=== PATIENT | female | born 1950 | race Caucasian/White ===

== ENCOUNTER 2017-12-04 11:04 | Inpatient (IN) | payer OTHER ==
[~2017-12-04] VITALS: Ht 160 cm; Wt 105.3 kg
[~2017-12-04 11:04] MED LIST: ALBU18HF INH; ALPR-475 PO; ALPR1TAB2 PO; CLON1TAB23 PO; DEXL60CA2 PO; DICL50TA2 PO; DULO60CA7 PO; ENOX100S5 SQ; FLUO10CA7 PO; FLUO20CA8 PO; FLUV50TA2 PO; FLUVOXAMINE; FOLI-17 PO; GABA-826 PO; GABA300C10 PO; HYDR-3240 PO; LEVO250T23 PO; LEVO250T8 PO; MAGN400T7 PO; MULT-750 PO; SIMV20TA3 PO; SIMV5TAB5 PO; SYMBICORT; THIA100T6 PO; TOPI15CA PO; TOPI50TA8 PO; TRAZ100T15 PO; WARF1TAB PO; WARF5TAB PO; ZOLP-413 PO; ZOLP10TA PO
[2017-12-04 12:42] LABS: MEAN CORPUSCULAR HEMOGLOBIN 32.4 pg (27.0-34.8); MEAN CORPUSCULAR HGB CONC 33.9 g/dL (32.4-35.8); MEAN CORPUSCULAR VOLUME 95.4 fL (80-100); MEAN PLATELET VOLUME 8.2 fL (7.4-10.4); PLATELET COUNT 279 x10^3/uL (130-400); RED BLOOD COUNT 4.23 x10^6/uL (3.82-5.3); RED CELL DISTRIBUTION WIDTH 13.8 % (9.6-15.2)
[2017-12-04 12:52] LABS: ALBUMIN 3.4 g/dL (3.4-5.0); ANION GAP 9 mmol/L (5-15); CALCIUM 8.5 mg/dL (8.5-10.1); CHLORIDE 107 mmol/L (98-107)
[2017-12-04 12:53] LABS: SALICYLATE LEVEL < 1.7 mg/dL (2.8-20.0)
[2017-12-04 12:54] LABS: ALANINE AMINOTRANSFERASE 17 U/L (12-78); ALKALINE PHOSPHATASE 58 U/L (45-117); BILIRUBIN,TOTAL 0.4 mg/dL (0.2-1.0); CREATININE 0.99 mg/dL (0.55-1.02); TOTAL PROTEIN 7.2 g/dL (6.4-8.2)
[2017-12-04 12:55] LABS: ACETAMINOPHEN < 2 mcg/mL (10-30)
[2017-12-04 13:10] LABS: MD YES
[2017-12-04 13:12] LABS: <PLATELET ESTIMATE> ADEQUATE; <PLT MORPHOLOGY> NORMAL PLT MORPH; <RBC MORPHOLOGY> NORMAL; BAND#(MANUAL) 1.56 x10^3/uL; BANDS%(MANUAL) 7 % (0-7); EOS#(MANUAL) 0.22 x10^3/uL (0.0-0.4); EOS% (MANUAL) 1 % (1-7); LYMPH#(MANUAL) 4.68 x10^3/uL (1-3.4); LYMPHS% (MANUAL) 21 % (22-44); MONOS#(MANUAL) 2.01 x10^3/uL (0.3-2.7); MONOS% (MANUAL) 9 % (2-9); SEG#(MANUAL) 13.83 x10^3/uL (1.8-6.8); SEGS% (MANUAL) 62 % (42-75)
[2017-12-04 13:33] LABS: CULTURE INDICATED? YES; MICROSCOPIC INDICATED
[2017-12-04 13:42] LABS: AMPHETAMINE SCREEN, URINE Negative (Negative); BARBITURATE SCREEN, URINE Negative (Negative); BENZODIAZEPINE SCREEN, URINE Positive (Negative); CANNABINOID SCREEN, URINE Negative (Negative); COCAINE SCREEN, URINE Negative (Negative); METHADONE SCREEN, URINE Negative (Negative); OPIATE SCREEN, URINE Negative (Negative)
[2017-12-04] MEDS ORDERED: CLON2TAB2 PO (14:24)
[2017-12-04] MEDS ORDERED: LORA1TAB PO (14:24)
[2017-12-04] MEDS ORDERED: PIPERACILLIN/TAZO/PMX 3.375GM 50 ML IV ONE (14:30)
[2017-12-04] MEDS ORDERED: CEFTRIAXONE PMX 1GM/50ML 50 ML ONE (14:32)
[2017-12-04] MEDS ORDERED: CEFTRIAXONE PMX 1GM/50ML 50 ML IV ONE (15:00)
[2017-12-04] MEDS ORDERED: hydrALAzine 20 MG/ML, 1ML IVPush PRN (16:00)
[2017-12-04] MEDS ORDERED: LABETALOL 5MG/ML, 20ML IVPush PRN (16:00)
[2017-12-04] MEDS: CEFTRIAXONE 2 GM in DEXTROSE 5% 50 ML IV SCH (17:00)
[2017-12-04] MEDS: LACTATED RINGERS 1,000 ML IV SCH (18:20)
[2017-12-04] MEDS: ENOXAPARIN 40 MG/0.4 ML SQ SCH (18:22)
[2017-12-04 19:12] VITALS: BP 113/74
[2017-12-04] MEDS ORDERED: LORazepam 1MG TABLET PO SCH (21:00)
[2017-12-05 01:34] VITALS: BP 119/80
[2017-12-05] MEDS: LACTATED RINGERS 1,000 ML IV SCH ×3 (02:10→19:27)
[2017-12-05 05:18] LABS: BASOPHILS # (AUTO) 0.09 x10^3/uL (0-0.1); BASOPHILS % (AUTO) 1 % (0-1); EOSINOPHILS % (AUTO) 2 % (1-7); LYMPHOCYTES % (AUTO) 26 % (22-44); MD NO; MEAN CORPUSCULAR HEMOGLOBIN 32.4 pg (27.0-34.8); MEAN CORPUSCULAR HGB CONC 33.9 g/dL (32.4-35.8); MEAN CORPUSCULAR VOLUME 95.4 fL (80-100); MEAN PLATELET VOLUME 8.1 fL (7.4-10.4); MONOCYTES # (AUTO) 1.11 x10^3/uL (0.2-0.8); MONOCYTES % (AUTO) 8 % (2-9); NEUTROPHILS # (AUTO) 8.76 x10^3/uL (1.8-6.8); NEUTROPHILS % (AUTO) 63 % (42-75); PLATELET COUNT 266 x10^3/uL (130-400); RED BLOOD COUNT 3.78 x10^6/uL (3.82-5.3); RED CELL DISTRIBUTION WIDTH 14.1 % (9.6-15.2)
[2017-12-05 05:30] LABS: ANION GAP 6 mmol/L (5-15); CHLORIDE 110 mmol/L (98-107)
[2017-12-05 05:31] LABS: CREATININE 0.79 mg/dL (0.55-1.02)
[2017-12-05 07:27] VITALS: BP 119/80
[2017-12-05] MEDS ORDERED: FLUOXETINE HCL 20 MG CAPSULE PO SCH (09:00)
[2017-12-05 12:55] VITALS: BP 122/83
[2017-12-05 13:25] VITALS: BP 122/83
[2017-12-05] MEDS: CEFTRIAXONE 2 GM in DEXTROSE 5% 50 ML IV SCH (17:42)
[2017-12-05] MEDS: ENOXAPARIN 40 MG/0.4 ML SQ SCH (17:45)
[2017-12-05] MEDS: ACETAMINOPHEN 325 MG TABLET PO PRN (17:46)
[2017-12-05 19:18] VITALS: BP 137/86
[2017-12-06 02:06] VITALS: BP 109/72
[2017-12-06] MEDS: LACTATED RINGERS 1,000 ML IV SCH (05:27)
[2017-12-06 05:38] LABS: ANION GAP 2 mmol/L (5-15); CALCIUM 8.4 mg/dL (8.5-10.1); CHLORIDE 113 mmol/L (98-107); CREATININE 0.87 mg/dL (0.55-1.02)
[2017-12-06 05:39] LABS: BASOPHILS # (AUTO) 0.06 x10^3/uL (0-0.1); BASOPHILS % (AUTO) 1 % (0-1); EOSINOPHILS # (AUTO) 0.25 x10^3/uL (0-0.4); EOSINOPHILS % (AUTO) 3 % (1-7); LYMPHOCYTES # (AUTO) 3.56 x10^3/uL (1-3.4); LYMPHOCYTES % (AUTO) 36 % (22-44); MD NO; MEAN CORPUSCULAR HEMOGLOBIN 31.6 pg (27.0-34.8); MEAN CORPUSCULAR HGB CONC 33.2 g/dL (32.4-35.8); MEAN CORPUSCULAR VOLUME 95.1 fL (80-100); MEAN PLATELET VOLUME 8.1 fL (7.4-10.4); MONOCYTES # (AUTO) 1.16 x10^3/uL (0.2-0.8); MONOCYTES % (AUTO) 12 % (2-9); NEUTROPHILS # (AUTO) 4.77 x10^3/uL (1.8-6.8); NEUTROPHILS % (AUTO) 49 % (42-75); PLATELET COUNT 256 x10^3/uL (130-400); RED BLOOD COUNT 3.66 x10^6/uL (3.82-5.3); RED CELL DISTRIBUTION WIDTH 14.2 % (9.6-15.2)
[2017-12-06 07:55] VITALS: BP 126/84
[2017-12-06] MEDS: THIAMINE 100MG TABLET PO SCH (09:45)
[2017-12-06] MEDS: FOLIC ACID 1 MG TABLET PO SCH (09:45)
[2017-12-06 13:56] VITALS: BP 123/82
[2017-12-06] MEDS: ENOXAPARIN 40 MG/0.4 ML SQ SCH (17:00)
[2017-12-06] MEDS ORDERED: CEFTRIAXONE 2 GM in DEXTROSE 5% 50 ML IV SCH (17:00)
[2017-12-06 19:08] VITALS: BP 149/91
[2017-12-07 01:18] VITALS: BP 139/86
[2017-12-07 05:14] LABS: BASOPHILS # (AUTO) 0.04 x10^3/uL (0-0.1); BASOPHILS % (AUTO) 0 % (0-1); EOSINOPHILS # (AUTO) 0.28 x10^3/uL (0-0.4); EOSINOPHILS % (AUTO) 3 % (1-7); LYMPHOCYTES # (AUTO) 3.62 x10^3/uL (1-3.4); LYMPHOCYTES % (AUTO) 36 % (22-44); MD NO; MEAN CORPUSCULAR HEMOGLOBIN 31.8 pg (27.0-34.8); MEAN CORPUSCULAR HGB CONC 33.3 g/dL (32.4-35.8); MEAN CORPUSCULAR VOLUME 95.4 fL (80-100); MEAN PLATELET VOLUME 8.1 fL (7.4-10.4); MONOCYTES # (AUTO) 1.25 x10^3/uL (0.2-0.8); MONOCYTES % (AUTO) 13 % (2-9); NEUTROPHILS # (AUTO) 4.81 x10^3/uL (1.8-6.8); NEUTROPHILS % (AUTO) 48 % (42-75); PLATELET COUNT 258 x10^3/uL (130-400); RED BLOOD COUNT 3.73 x10^6/uL (3.82-5.3); RED CELL DISTRIBUTION WIDTH 13.6 % (9.6-15.2)
[2017-12-07 05:19] LABS: ANION GAP 7 mmol/L (5-15); CALCIUM 8.5 mg/dL (8.5-10.1); CHLORIDE 109 mmol/L (98-107); CREATININE 0.93 mg/dL (0.55-1.02)
[2017-12-07 07:18] VITALS: BP 154/95
[2017-12-07] MEDS: THIAMINE 100MG TABLET PO SCH (09:47)
[2017-12-07] MEDS: FOLIC ACID 1 MG TABLET PO SCH (09:47)
[2017-12-07] MEDS: ENOXAPARIN 30 MG/0.3 ML SQ SCH ×2 (10:08→20:56)
[2017-12-07 14:22] VITALS: BP 157/96
[2017-12-07 19:29] VITALS: BP 144/86
[2017-12-08 00:31] VITALS: BP 136/84
[2017-12-08] MEDS: FOLIC ACID 1 MG TABLET PO SCH (08:41)
[2017-12-08] MEDS: THIAMINE 100MG TABLET PO SCH (08:41)
[2017-12-08] MEDS: ENOXAPARIN 30 MG/0.3 ML SQ SCH ×2 (09:00→21:34)
[2017-12-08 15:59] VITALS: BP 122/83
[2017-12-08 19:42] VITALS: BP 138/83
[2017-12-09 08:45] VITALS: BP 128/82
[2017-12-09] MEDS: ENOXAPARIN 30 MG/0.3 ML SQ SCH ×2 (09:00→20:49)
[2017-12-09] MEDS: FOLIC ACID 1 MG TABLET PO SCH (09:00)
[2017-12-09] MEDS: THIAMINE 100MG TABLET PO SCH (09:00)
[2017-12-09 20:01] VITALS: BP 165/103
[2017-12-09] MEDS: ACETAMINOPHEN 325 MG TABLET PO PRN (20:49)
[2017-12-10] MEDS: THIAMINE 100MG TABLET PO SCH (09:00)
[2017-12-10] MEDS: FOLIC ACID 1 MG TABLET PO SCH (09:00)
[2017-12-10] MEDS: ENOXAPARIN 30 MG/0.3 ML SQ SCH ×2 (09:00→21:07)
[2017-12-10 09:44] VITALS: BP 136/81
[2017-12-10] MEDS ORDERED: LORazepam 1MG TABLET PO ONE (14:30)
[2017-12-10 20:00] VITALS: BP 119/86
[2017-12-10] MEDS: ACETAMINOPHEN 325 MG TABLET PO PRN (21:12)
[2017-12-11 08:32] VITALS: BP 129/85
[2017-12-11] MEDS: ENOXAPARIN 30 MG/0.3 ML SQ SCH ×2 (09:00→21:00)
[2017-12-11] MEDS: SERTRALINE 50MG TABLET PO SCH (09:46)
[2017-12-11] MEDS: THIAMINE 100MG TABLET PO SCH (09:46)
[2017-12-11] MEDS: FOLIC ACID 1 MG TABLET PO SCH (09:47)
[2017-12-11 19:38] VITALS: BP 127/92
[2017-12-11] MEDS: ACETAMINOPHEN 325 MG TABLET PO PRN (21:17)
[2017-12-12 08:56] VITALS: BP 108/73
[2017-12-12] MEDS: ENOXAPARIN 30 MG/0.3 ML SQ SCH (09:00)
[2017-12-12] MEDS: SERTRALINE 50MG TABLET PO SCH (09:43)
[2017-12-12] MEDS: FOLIC ACID 1 MG TABLET PO SCH (09:43)
[2017-12-12] MEDS: THIAMINE 100MG TABLET PO SCH (09:44)
== END 2017-12-12 12:38 | DRG 917 ==
LOC: ED 14:08 → EDIP 14:09 → ED 14:32 → 3NE 15:35 → 3E 12-08 18:16
PROVIDERS: ADMIT Family Medicine; ATTEND Hospitalist
DX: T42.4X2A Poisoning by benzodiazepines, intentional self-harm, initial encounter (principal); G93.40 Encephalopathy, unspecified; F33.2 Major depressive disorder, recurrent severe without psychotic features; F13.20 Sedative, hypnotic or anxiolytic dependence, uncomplicated; N30.90 Cystitis, unspecified without hematuria; E66.01 Morbid (severe) obesity due to excess calories; Z68.41 Body mass index [BMI] 40.0-44.9, adult; F10.20 Alcohol dependence, uncomplicated; F41.1 Generalized anxiety disorder; F43.21 Adjustment disorder with depressed mood; F51.04 Psychophysiologic insomnia; F51.5 Nightmare disorder; D72.829 Elevated white blood cell count, unspecified; F19.10 Other psychoactive substance abuse, uncomplicated; Z66 Do not resuscitate; F17.200 Nicotine dependence, unspecified, uncomplicated; Z81.1 Family history of alcohol abuse and dependence; Z81.8 Family history of other mental and behavioral disorders; Z85.3 Personal history of malignant neoplasm of breast; Z86.711 Personal history of pulmonary embolism; Z90.49 Acquired absence of other specified parts of digestive tract; Y92.89 Other specified places as the place of occurrence of the external cause
CPT/HCPCS: 36415; 71045; 71046; 80048; 80053; 80307; 80329; 81001; 83735; 84145; 85025; 87040; 87086; 96365; 96375; J0696; J1650; G0378; G0480; J7120

== ENCOUNTER 2018-05-07 10:00 | Inpatient (IN) | payer MEDICARE, OTHER ==
[~2018-05-07] VITALS: Ht 160 cm; Wt 84.3 kg
[~2018-05-07 10:00] MED LIST changes: +CLON2TAB9 PO; +LORA1TAB PO; -THIA100T6 PO; +THIA100T67 PO; +TRAZ-137 PO; -TRAZ100T15 PO
[2018-05-07] MEDS ORDERED: POLYETHYLENE GLYCOL 17 GM PACKET PO PRN (15:00)
[2018-05-07] MEDS ORDERED: BISACODYL 10 MG SUPP PR PRN (15:00)
[2018-05-07] MEDS ORDERED: GABA300C10 PO (15:59)
[2018-05-07] MEDS ORDERED: FLUT12AE INH (15:59)
[2018-05-07] MEDS ORDERED: ZOLP10TA5 PO (15:59)
[2018-05-07] MEDS ORDERED: OLAN5TAB9 PO (15:59)
[2018-05-07] MEDS ORDERED: QUET100T PO (15:59)
[2018-05-07] MEDS ORDERED: SERT100T5 PO (15:59)
[2018-05-07 16:23] VITALS: BP 115/76
[2018-05-07] MEDS: ACETAMINOPHEN 325 MG TABLET PO PRN (18:08)
[2018-05-07 19:36] LABS: BASOPHILS # (AUTO) 0.05 x10^3/uL (0-0.1); BASOPHILS % (AUTO) 1 % (0-1); EOSINOPHILS # (AUTO) 0.67 x10^3/uL (0-0.4); EOSINOPHILS % (AUTO) 6 % (1-7); LYMPHOCYTES % (AUTO) 21 % (22-44); MD NO; MEAN CORPUSCULAR HEMOGLOBIN 31.5 pg (27.0-34.8); MEAN CORPUSCULAR HGB CONC 33.9 g/dL (32.4-35.8); MEAN CORPUSCULAR VOLUME 92.9 fL (80-100); MEAN PLATELET VOLUME 9.2 fL (7.4-10.4); MONOCYTES # (AUTO) 1.27 x10^3/uL (0.2-0.8); MONOCYTES % (AUTO) 11 % (2-9); NEUTROPHILS # (AUTO) 7.59 x10^3/uL (1.8-6.8); NEUTROPHILS % (AUTO) 63 % (42-75); PLATELET COUNT 226 x10^3/uL (130-400); RED BLOOD COUNT 3.88 x10^6/uL (3.82-5.3); RED CELL DISTRIBUTION WIDTH 15.2 % (9.6-15.2)
[2018-05-07 19:49] LABS: ANION GAP 5 mmol/L (5-15); CHLORIDE 110 mmol/L (98-107); CREATININE 0.98 mg/dL (0.55-1.02)
[2018-05-07 20:08] VITALS: BP 121/83
[2018-05-08 07:59] VITALS: BP 122/81
[2018-05-08] MEDS: SENNA/DOCUSATE TABLET PO SCH (09:00)
[2018-05-08] MEDS ORDERED: NICOTINE 14MG/24 HR PATCH.TD24 TD ONE (12:00)
[2018-05-08] MEDS: ACAMPROSATE 333 MG TABLET.DR PO SCH ×2 (16:00→20:46)
[2018-05-08 19:46] VITALS: BP 135/83
[2018-05-08] MEDS: QUETIAPINE 25MG TABLET PO SCH (20:46)
[2018-05-08] MEDS: THIAMINE 100MG TABLET PO SCH (20:50)
[2018-05-09 07:56] VITALS: BP 144/99
[2018-05-09] MEDS: ACAMPROSATE 333 MG TABLET.DR PO SCH ×3 (08:10→21:24)
[2018-05-09] MEDS: HYDROXYZINE PAMOATE 50MG CAP PO PRN (08:10)
[2018-05-09] MEDS: SERTRALINE 50MG TABLET PO SCH (08:10)
[2018-05-09] MEDS: THIAMINE 100MG TABLET PO SCH ×2 (08:10→21:24)
[2018-05-09] MEDS: SENNA/DOCUSATE TABLET PO SCH (08:18)
[2018-05-09] MEDS: NICOTINE 14MG/24 HR PATCH.TD24 TD SCH (12:41)
[2018-05-09] MEDS: ACETAMINOPHEN 325 MG TABLET PO PRN (15:43)
[2018-05-09 19:59] VITALS: BP 126/66
[2018-05-09] MEDS: QUETIAPINE 25MG TABLET PO SCH (21:24)
[2018-05-10 06:38] VITALS: BP 164/101
[2018-05-10] MEDS: HYDROXYZINE PAMOATE 50MG CAP PO PRN (06:38)
[2018-05-10 08:08] VITALS: BP 136/87
[2018-05-10] MEDS: THIAMINE 100MG TABLET PO SCH ×2 (08:18→20:37)
[2018-05-10] MEDS: ACETAMINOPHEN 325 MG TABLET PO PRN ×2 (08:18→11:49)
[2018-05-10] MEDS: ACAMPROSATE 333 MG TABLET.DR PO SCH ×3 (08:18→20:38)
[2018-05-10] MEDS: SERTRALINE 50MG TABLET PO SCH (08:18)
[2018-05-10] MEDS: SENNA/DOCUSATE TABLET PO SCH (08:22)
[2018-05-10] MEDS: NICOTINE 14MG/24 HR PATCH.TD24 TD SCH (11:49)
[2018-05-10 19:49] VITALS: BP 159/86
[2018-05-10] MEDS: QUETIAPINE 25MG TABLET PO SCH (20:37)
[2018-05-10 21:11] VITALS: BP 131/72
[2018-05-11] MEDS: ACETAMINOPHEN 325 MG TABLET PO PRN ×2 (00:28→12:29)
[2018-05-11 08:27] VITALS: BP 134/81
[2018-05-11] MEDS: ACAMPROSATE 333 MG TABLET.DR PO SCH ×3 (09:00→19:41)
[2018-05-11] MEDS: SENNA/DOCUSATE TABLET PO SCH (09:00)
[2018-05-11] MEDS: THIAMINE 100MG TABLET PO SCH ×2 (09:10→19:42)
[2018-05-11] MEDS: SERTRALINE 50MG TABLET PO SCH (09:10)
[2018-05-11] MEDS: NICOTINE 14MG/24 HR PATCH.TD24 TD SCH (11:02)
[2018-05-11 19:29] VITALS: BP 155/97
[2018-05-11] MEDS: QUETIAPINE 25MG TABLET PO SCH (19:41)
[2018-05-12 07:54] VITALS: BP 144/84
[2018-05-12] MEDS: SERTRALINE 50MG TABLET PO SCH (08:47)
[2018-05-12] MEDS: THIAMINE 100MG TABLET PO SCH ×2 (08:47→20:33)
[2018-05-12] MEDS: ACAMPROSATE 333 MG TABLET.DR PO SCH ×3 (08:47→20:33)
[2018-05-12] MEDS: SENNA/DOCUSATE TABLET PO SCH (08:47)
[2018-05-12] MEDS: ACETAMINOPHEN 325 MG TABLET PO PRN (08:51)
[2018-05-12] MEDS: NICOTINE 14MG/24 HR PATCH.TD24 TD SCH (12:15)
[2018-05-12 19:56] VITALS: BP 157/99
[2018-05-12] MEDS: QUETIAPINE 25MG TABLET PO SCH (20:33)
[2018-05-13] MEDS: HYDROXYZINE PAMOATE 50MG CAP PO PRN (07:29)
[2018-05-13 07:30] VITALS: BP 189/100
[2018-05-13] MEDS: ACETAMINOPHEN 325 MG TABLET PO PRN (07:30)
[2018-05-13 08:03] VITALS: BP 169/107
[2018-05-13] MEDS: ACAMPROSATE 333 MG TABLET.DR PO SCH (08:40)
[2018-05-13] MEDS: SENNA/DOCUSATE TABLET PO SCH (08:41)
[2018-05-13] MEDS: SERTRALINE 50MG TABLET PO SCH (08:41)
[2018-05-13] MEDS: THIAMINE 100MG TABLET PO SCH (08:41)
[2018-05-13 09:32] VITALS: BP 172/103
[2018-05-13] MEDS: NICOTINE 14MG/24 HR PATCH.TD24 TD SCH (12:33)
[2018-05-13] MEDS ORDERED: ACAM333T7 PO (12:44)
[2018-05-13] MEDS ORDERED: THIA100T67 PO (12:44)
== END 2018-05-13 14:15 | disposition home or self-care (01) | DRG 885 ==
LOC: 3E 14:51
PROVIDERS: ADMIT Counselor Mental Health; ATTEND Counselor Mental Health
DX: F33.1 Major depressive disorder, recurrent, moderate (principal); J96.11 Chronic respiratory failure with hypoxia; M79.7 Fibromyalgia; Z88.8 Allergy status to other drugs, medicaments and biological substances; Z99.81 Dependence on supplemental oxygen; F10.20 Alcohol dependence, uncomplicated; Y90.9 Presence of alcohol in blood, level not specified; F41.9 Anxiety disorder, unspecified; G89.29 Other chronic pain; M25.519 Pain in unspecified shoulder; I10 Essential (primary) hypertension; K21.9 Gastro-esophageal reflux disease without esophagitis; Z80.0 Family history of malignant neoplasm of digestive organs; Z80.42 Family history of malignant neoplasm of prostate; Z83.3 Family history of diabetes mellitus; Z86.711 Personal history of pulmonary embolism; Z82.5 Family history of asthma and other chronic lower respiratory diseases; Z90.49 Acquired absence of other specified parts of digestive tract; Z87.891 Personal history of nicotine dependence
CPT/HCPCS: 36415; 71045; 80048; 82040; 85025; 92523-GN